=== PATIENT | female | born 1985 | race Caucasian/White ===

== ENCOUNTER 2019-07-15 19:09 | Emergency (ER) | payer BC, OTHER ==
[2019-07-15 19:34] VITALS: BP 115/72
--- NOTE | 2019-07-15 19:51 | UC ---
Throat Pain/Nasal Charli HPI - HPI Summary HPI Summary: 33-year-old female with a sore throat over the past 2 days. No fever or chills. She has been exposed to another person with strep. - History of Current Complaint Chief Complaint: UCGeneralIllness Stated Complaint: ST,JAW PAIN Time Seen by Provider: 07/15/19 19:45 Hx Obtained From: Patient ?: No Onset/Duration: Gradual Onset Severity: Mild Pain Intensity: 4 Cough: None - Allergies/Home Medications Allergies/Adverse Reactions: Allergies Allergy/AdvReac Type Severity Reaction Status Date / Time Sulfa (Sulfonamide Allergy See Comment Verified 07/15/19 19:34 Antibiotics) Home Medications: Home Medications Iron 65 mg PO DAILY 07/15/19 [History Confirmed 07/15/19] Levothyroxine TAB* [Synthroid TAB*] 50 mcg PO DAILY 07/15/19 [History Confirmed 07/15/19] metFORMIN* [Glucophage 1000 MG TAB *] 1,000 mg PO BID 07/15/19 [History Confirmed 07/15/19] PMH/Surg Hx/FS Hx/Imm Hx Previously Healthy: Yes Endocrine History: Thyroid Disease - Surgical History Surgical History: Yes Surgery Procedure, Year, and Place: c section 01/2015. appy 07/2004 - Family History Known Family History: Positive: Non-Contributory - Social History Lives: With Family Alcohol Use: Rare Substance Use Type: None Smoking Status (MU): Former Smoker When Did the Patient Quit Smoking/Using Tobacco: 6 yrs ago Review of Systems All Other Systems Reviewed And Are Negative: Yes ENT: Positive: Sore Throat Is Patient Immunocompromised?: No Physical Exam Triage Information Reviewed: Yes Appearance: Well-Appearing, No Pain Distress, Well-Nourished Vital Signs: Initial Vital Signs Temp 97.8 F 07/15/19 19:28 Pulse 82 07/15/19 19:28 Resp 18 07/15/19 19:28 BP 115/72 07/15/19 19:28 Pulse Ox 99 07/15/19 19:28 Vital Signs Reviewed: Yes Eyes: Positive: Conjunctiva Clear ENT: Positive: Hearing grossly normal, Pharyngeal erythema - Mild pharyngeal erythema., TMs normal, Uvula midline Neck: Positive: Supple, Nontender, No Lymphadenopathy Respiratory: Positive: Lungs clear, Normal breath sounds, No respiratory distress, No accessory muscle use Cardiovascular: Positive: RRR, No Murmur, Pulses Normal, Brisk Capillary Refill Musculoskeletal: Positive: Strength Intact, ROM Intact Neurological Exam: Normal Psychological Exam: Normal Skin Exam: Normal Throat Pain/Nasal Course/Dx - Course Course Of Treatment: Rapid strep test: Negative - Differential Dx/Diagnosis Provider Diagnosis: Pharyngitis Discharge ED - Sign-Out/Discharge Documenting (check all that apply): Patient Departure All imaging exams completed and their final reports reviewed: No Studies - Discharge Plan Condition: Good Disposition: HOME Patient Education Materials: Pharyngitis (ED) Referrals: No Primary Care Phys,NOPCP [Primary Care Provider] - Additional Instructions: Increase fluids, warm saltwater gargles, throat lozenges. May take Tylenol every 4 hours and Motrin every 8 hours for pain or fever. Definite follow-up with your primary care provider if no improvement in 4 or 5 days. - Billing Disposition and Condition Condition: GOOD Disposition: Home - Attestation Statements Provider Attestation: I was available for consult. This patient was seen by the JOHN. The patient was not presented to, seen by, or examined by me. -Evonne
== END 2019-07-15 20:12 | disposition home or self-care (01) ==
LOC: MERGE 19:09 → UCCORT 19:09
DX: J02.9 Acute pharyngitis, unspecified (principal); E07.9 Disorder of thyroid, unspecified; Z88.2 Allergy status to sulfonamides; Z79.890 Hormone replacement therapy; Z87.891 Personal history of nicotine dependence
CPT/HCPCS: 87651; 99201; G0463